=== PATIENT | female | born 1960 | race Caucasian/White ===

== ENCOUNTER 2018-06-21 11:05 | Emergency (ER) | payer BC ==
[~2018-06-21] VITALS: Ht 157.5 cm; Wt 65.8 kg
--- OUTSIDE RECORDS SUMMARY | 2018-06-21 11:08 | XMS REPORT ---
Author Author [facility] Address Unknown Phone Unavailable Care Team Providers Care Sales Representative Aircraft Name Role Phone Unavailable Unavailable Payers Payer Name Policy Type Policy Number Effective Date Expiration Date Problems This patient has no known problems. Allergies, Adverse Reactions, Alerts This patient has no known allergies or adverse reactions. Medications This patient has no known medications.
--- NOTE | 2018-06-21 11:13 | NUR ---
[facility] CALLED FOR STAT TRANSFER ETA 10MIN
[2018-06-21] MEDS: ASPIRIN 81 MG CHEW TAB PO ONE ×3 (11:26→15:21)
--- NOTE | 2018-06-21 11:27 | NUR ---
REPORT TO EMS ALL QUESTIONS ANSWERED PT TRANSFERED TO MAIN CAMPUS FOR STAT CT.
--- NOTE | 2018-06-21 11:36 | NUR ---
pt off to ct via cart
--- NOTE | 2018-06-21 11:36 | NUR ---
REPORT TO MISSY LESTER ALL QUESTIONS ANSWERED
[2018-06-21] MEDS ORDERED: DEXAMETHASONE SOD PHOS 10 MG/1 ML VIAL IV ONE ×2 (12:00→16:30)
[2018-06-21 12:04] LABS: BASOPHILS % 0.2 % (0.0-1.0); EOSINOPHILS # (AUTO) 0.1 (0.0-0.4); EOSINOPHILS % 1.1 % (0.0-6.0); HEMATOCRIT 37.6 % (34.2-44.1); HEMOGLOBIN 12.6 g/dL (12.0-16.0); LYMPHOCYTES # (AUTO) 1.8 (1.0-3.2); LYMPHOCYTES % 20.5 % (18.0-39.1); MEAN CORPUSCULAR HEMOGLOBIN 30.1 pg (28-32); MEAN CORPUSCULAR HGB CONC 33.5 g/dL (31-35); MEAN CORPUSCULAR VOLUME 89.7 fL (81-99); MONOCYTES # (AUTO) 0.9 (0.2-0.8); MONOCYTES % 10.6 % (4.4-11.3); NEUTROPHILS % 67.4 % (38.7-80.0); PLATELET COUNT 392 x10e3/uL (140-360); RED BLOOD COUNT 4.19 x10e6/uL (3.6-5.1); RED CELL DISTRIBUTION WIDTH 12.5 % (11.7-14.4)
--- NOTE | 2018-06-21 12:05 | Diagnostic Imaging Report ---
Exam: Head CT without contrast History: Stroke like symptoms Comparison studies: None Technique: Axial images were obtained from the skull base to the vertex. Coronal and sagittal images reconstructed from the axial data. Dose modulation, iterative reconstruction, and/or weight based adjustment of the mA/kV was utilized to reduce the radiation dose to as low as reasonably achievable. Radiation dose: Total DLP: 832 mGy*cm. Estimated effective dose: DLP x 0.015 Intravenous contrast: None Findings: Scalp: No abnormalities. Bones: No fractures, blastic or lytic lesions. Brain sulci: Appropriate for age. Ventricles: Normal in size and configuration. No hydrocephalus. Extra-axial spaces and parenchyma: Circumscribed 2.7 x 2.6 x 2.3 cm (SI x AP x TV) right paramedian frontal mass appears to be extra-axial, is inseparable from the falx abuts the superior sagittal sinus. There is moderate perilesional edema in the surrounding right frontal white matter. Mass effect is local without herniation. No acute hemorrhage or acute cortical infarct. Sellar/suprasellar region: No abnormalities. Craniocervical junction: Patent foramen magnum. No Chiari one malformation. IMPRESSION: 1. Circumscribed 2.7 cm right frontal parafalcine extra-axial mass abuts the superior sagittal sinus and is with surrounding edema. Primary diagnostic consideration is meningioma. Brain MRI with IV contrast is necessary to further characterize. 2. Mass effect is local. No herniation. Findings discussed with Dr. Iglesias at 11:54 AM on 06/21/2018. Signed by: Dr. Jose Ramos M.D. on 06/21/2018 12:02 PM
[2018-06-21] MEDS ORDERED: DEXAMETHASONE SOD PHOS 10 MG/1 ML VIAL ONE (12:06)
[2018-06-21] MEDS ORDERED: LEVETIRACETAM 500MG/5ML VIAL 1,000 MG in SODIUM CHLORIDE 0.9% 100 ML 100 ML IV STA (12:07)
[2018-06-21 12:13] LABS: INR 0.86; PROTHROMBIN TIME 12.2 seconds (11.9-14.5)
[2018-06-21 12:14] LABS: PARTIAL THROMBOPLASTIN TIME 32.2 seconds (23.8-35.5)
[2018-06-21] MEDS ORDERED: LEVETIRACETAM 500MG/5ML VIAL 1,000 MG in SODIUM CHLORIDE 0.9% 100 ML 100 ML IV SCH (12:15)
--- NOTE | 2018-06-21 12:15 | NUR ---
ASSISTED PT UP TO BR. gait is steady. pt.'s speech is clear at this time
[2018-06-21 12:24] LABS: ALANINE AMINOTRANSFERASE 38 IU/L (0-55); ALBUMIN 3.8 g/dL (3.5-5.0); ALKALINE PHOSPHATASE 113 IU/L (40-150); ANION GAP 14.8 mmol/L (8-16); BLOOD UREA NITROGEN 12 mg/dL (7-26); BUN/CREATININE RATIO 17 (6-25); CALCIUM 10.3 mg/dL (8.4-10.2); CARBON DIOXIDE 24 mmol/L (22-29); CHLORIDE 98 mmol/L (98-107); CREATINE KINASE 137 IU/L (29-168); CREATININE, SERUM 0.71 mg/dL (0.57-1.11); EST GLOMERULAR FILTRATION RATE > 60 ML/MIN (60-); GLUCOSE 96 mg/dL (74-118); POTASSIUM 3.8 mmol/L (3.5-5.1); SODIUM 133 mmol/L (136-145)
[2018-06-21] MEDS ORDERED: LEVETIRACETAM 500 MG/5 ML VIAL IV ONE (12:35)
[2018-06-21] MEDS ORDERED: SODIUM CHLORIDE 0.9% 100 ML ONE (12:36)
--- NOTE | 2018-06-21 12:51 | NUR ---
pt updated on pending tx to another facility
--- NOTE | 2018-06-21 13:45 | NUR ---
[facility] CALLED; BED WILL BE ASS[facility]. ONE MORE HR EXTENSION
--- NOTE | 2018-06-21 15:10 | NUR ---
[facility] called for transport
--- NOTE | 2018-06-21 15:22 | NUR ---
report called to KARTHIKEYAN SOSA RN FOR THIS PATIENT TO GO TO [address] [place] [address]; #[id number].
--- NOTE | 2018-06-21 16:45 | NUR ---
[facility] HERE TO TX PT. TO [facility].
[2018-06-21 17:11] VITALS: BP 131/74
== END 2018-06-21 16:40 | disposition other institution (70) ==
LOC: FSED 11:05 → ER 16:40
DX: R22.0 Localized swelling, mass and lump, head (principal); G40.109 Localization-related (focal) (partial) symptomatic epilepsy and epileptic syndromes with simple partial seizures, not intractable, without status epilepticus
CPT/HCPCS: 36415; 70450; 80053; 82550; 82553; 84484; 85025; 85610; 85730; 93005; 99285; J1100; J1953; J7050